=== PATIENT | male | born 1955 | race Caucasian/White ===

== ENCOUNTER 2018-03-04 08:02 | Observation (INO) | payer BC, SELFPAY ==
[2018-03-04] VITALS (17 sets, daily range): BP systolic 112–131; BP diastolic 64–86; PULSE 63–100; RESP 16–20; TEMP 36.4–36.7; O2SAT 92–100; BMI 32.6; BMI 31.2
--- NOTE | 2018-03-04 08:07 | EKG12_ITS ---
Test Reason : CP Blood Pressure : / mmHG Vent. Rate : 091 BPM Atrial Rate : 091 BPM P-R Int : 170 ms QRS Dur : 092 ms QT Int : 342 ms P-R-T Axes : 057 018 037 degrees QTc Int : 420 ms Sinus rhythm with occasional Premature ventricular complexes Otherwise normal ECG Confirmed by JELANI PATEL, ANN-MARIE ([id number]), offline editor LONNIE FRENCH ([id number]) on 03/07/2018 2:21:52 PM Referred By: TANI Confirmed By:ANN-MARIE PALOMARES MD
--- NOTE | 2018-03-04 08:07 | RAD_ITS ---
STUDY: X-RAY CHEST REASON FOR EXAM: Male, 62 years old. Chest pain TECHNIQUE: Single AP portable view of the chest. COMPARISON: March 03, 2017 FINDINGS: The lungs are clear and expanded. There is no demonstrated pleural abnormality. There is mild cardiac enlargement. There are prominent central vascular markings. Normal visualized pulmonary arteries. Normal visualized aortic arch and descending thoracic aorta. Normal visualized thoracic spine. Normal visualized ribs, clavicles, and shoulders. There is no demonstrated abnormality of the visualized soft tissue structures of the upper abdomen. RAD/Chest 1 View (Portable) IMPRESSION: Prominent central vascular markings slightly greater than the prior study consider mild vascular congestion. Electronically Signed: Kelly Manjarrez MD at 8:36 EST Tel , Service support ,
--- NOTE | 2018-03-04 08:09 | ED.VISSUMM ---
- ER Visit Summary Date of Service: 03/04/18 Chief Complaint: Chest pain History of Present Illness: The patient is a 62 M with history of hypertension, hyperlipidemia, diabetes, and smoking presents to the emergency department chest pain. Patient states he was working this morning. He states he began to have a substernal chest tightness shortness of breath that radiated to his right arm. He states that he did slightly decrease when he was resting. He states he has had pain like this before around the year 1999. He states that time he did have a heart attack. He states that he did have a cardiac catheterization, but does not have stents. He does take aspirin daily. He denies any fevers or chills. He has had a scant cough. He denies any leg swelling. He has no history of pulmonary embolus. Physical Examination: Vital signs reviewed General: Well-nourished, well-developed Head: Normocephalic, atraumatic Eyes: Pupils equal and reactive, extraocular muscles intact Neck, supple, no lymphadenopathy Heart: Regular rate and rhythm Respiratory: No distress, clear bilaterally Abdomen: Soft, nontender, nondistended, no peritoneal signs Back: Nontender Extremities: Nontender, no edema, no cords Skin: Normal color no rash Neuro: Alert and oriented, no focal or lateralizing deficits Test Results: [] Emergency Department Course and Treatment: EKG was obtained on patient arrival. There is no acute ischemic change. He does have a few PVCs, but it is unchanged from prior. The patient presents with chest pain. He does have history of coronary vascular disease. He did have angioplasty but no stenting. He was given 2 nitro with improvement of his pain. His chest x-ray shows questionable pulmonary edema, but no large pleural effusions. Patient's cardiac enzymes are normal. His pain was improved with nitro. Given his age, multiple cardiac risk factors, history of coronary vascular disease, I do feel the patient has been a require a cardiac workup. Patient was discussed with the hospitalist. Treatment Plan: [] Disposition: Admission Impression: 1. Chest pain with history of coronary vascular disease This note was generated with [employer] dictation software. It may contain incorrect words, spelling, and punctuation that were not noted in review of the chart prior to signing ED Disposition - Plan for ED Patient: Chief Complaint: Chest Pain Referrals: Iker Chowdary MD [Primary Care Provider] -
[2018-03-04 08:18] LABS: Absolute Lymphocyte Count 1.45 X10^3/ul (0.83-4.51); Absolute Neutrophil Count 7.1 X10^3/uL (2.0-7.7); Basophil# 0.03 X10^3/uL; Basophil% 0.3 % (0-1); Eosinophil# 0.19 X10^3/uL; Hematocrit 43.9 % (40-54); Hemoglobin 14.9 g/dl (13.0-16.5); Lymphocyte # 1.45 X10^3/ul (4.0); Lymphocyte % 15.1 % (19-41); Mean Corp Hgb Conc 33.9 g/gl (32-36); Mean Corpuscular Hgb 32.3 pg (27.0-32.0); Mean Corpuscular Volume 95.2 fL (80-94); Mean Platelet Vol. 9.5 fl (6.2-12.0); Monocyte# 0.88 X10^3/uL; Monocyte% 9.1 % (0-10); Neutrophil # 7.06 X10^3/uL (2.7-7.7); Neutrophil % 73.4 % (47-70); Platelet Count 220 K/mm3 (150-450); RBC Distribution Width CV 14.2 % (11.6-14.6); RBC Distribution Width SD 49.5 fl (35.1-43.9); Red Blood Count 4.61 M/mm3 (4.6-6.2); White Blood Count 9.6 K/mm3 (4.4-11.0)
[2018-03-04] MEDS: Ondansetron 4 MG/2 ML Vial IV (08:22)
[2018-03-04] MEDS: Aspirin 81 MG TAB.CHEW 324 MG PO (08:22)
[2018-03-04 08:35] LABS: POSITIVE COUNT NO; POSITIVE DIFFERENTIAL NO; POSITIVE MORPHOLOGY NO
[2018-03-04 08:41] LABS: Anion Gap 10 (5-15); BUN 19 mg/dL (7-18); BUN/Creat Ratio 19.4 RATIO (10-20); Calcium,Total 8.9 mg/dL (8.5-10.1); Chloride 108 mmol/L (98-107); Creatinine, Serum 0.98 mg/dL (0.70-1.30); EST Glomerular Filtration Rate 83 mL/min (>60); Est Glom Filt Rate - Afr Amer 100 mL/min (>60); Estimated Creatinine Clearance 81.73 ml/min; Glucose 125 mg/dL (74-106); Potassium 4.7 mmol/L (3.5-5.1); Sodium Level 142 mmol/L (136-145)
[2018-03-04 09:02] LABS: BNP,B-Type NATRIURETIC PEPTIDE 7.4 pg/mL (0-100)
--- NOTE | 2018-03-04 09:29 | HP.PCM_ITS ---
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 He was having substernal chest tightness and shortness of breath and the pain was radiating down his right arm. There was some relief with rest. He states that this pain is similar to the pain he had back in 1999 when he underwent a cardiac cath in his coronary arteries were found to be clean, and he did not need a stent placed. In the ER and initial troponin was negative and a chest x-ray showed possible vascular congestion but a BNP was normal. EKG is nonischemic. Pain was helped with nitroglycerin, and he denies any pain currently. He has not been having any episodes of chest pain prior to this. Past Medical History Past Medical History (Chronic Problems): Chronic Problems DM type 2 (diabetes mellitus, type 2) (Chronic) Peripheral vascular disease (Chronic) GERD (gastroesophageal reflux disease) (Chronic) Hyperlipidemia (Chronic) Allergies No Known Allergies Allergy (Verified 03/04/18 08:06) Home Medications: Ambulatory Orders Medication Instructions Recorded Aspirin [Aspirin, Baby] 81 mg PO DAILY@0800 12/09/15 Cilostazol [Pletal] 50 mg PO BIDAC 12/09/15 Clopidogrel Bisulfate [Plavix] 75 mg PO DAILY 12/09/15 Famotidine [Pepcid] 20 mg PO DAILY 12/09/15 Insulin Glargine [Lantus (BKC)] 6 units SC DAILY 12/09/15 Omeprazole [Prilosec] 10 mg PO QHS 12/09/15 Pravastatin [Pravachol] 80 mg PO DAILY 12/09/15 Risperidone [Risperdal] 1 mg PO DAILY 12/09/15 Vitb,C/Iron Fum/FA/Vit E/Aa 16 2 each PO DAILY 12/09/15 [Stress Formula Energy Tablet] Glipizide 5 mg PO TID 03/03/17 Albuterol Inhaler [Ventolin Hfa 2 puff INHALATION Q6H PRN PRN 03/04/18 (SP)] Budesonide Inhaler 180 mcg 1 puff INHALATION BID 03/04/18 [Pulmicort Inhaler 180 mcg] Dapagliflozin Propanediol [Farxiga] 10 mg PO DAILY 03/04/18 Metformin HCl [Glucophage Xr] 500 mg PO BID 03/04/18 Pioglitazone [Actos] 45 mg PO DAILY 03/04/18 Surgical History: - - Left leg clot removal, cardiac cath in 1999 Psychiatric History: - - Tourette's Lives: Spouse/ Significant Other Smoking Status: Current every day smoker Tobacco Use: Cigarettes Alcohol: None Drugs: None - *Family History Paternal History Items: Cancer - Prostate Review of Systems Constitutional: Denies: Chills, Fever, Weight Change HEENT: Denies: Head Aches, Sinus Congestion, Sinus Drainage Cardiovascular: Reports: Chest Pain. Denies: Light Headedness, Orthopnea, Palpitations, Syncope Respiratory: Reports: Shortness of Breath. Denies: Cough, Shortness of breath at rest, Sputum production Gastrointestinal: Denies: Abdominal Pain, Nausea, Vomiting Genitourinary: Denies: Dysuria Musculoskeletal: Denies: Joint Pain, Joint Tenderness Skin: Denies: Rash, Wounds Neurological: Denies: Numbness, Tingling, Focal weakness Psychiatric: Denies: Anxiety, Depression Hematologic/ Lymphatic: Denies: Easy Bruising, Easy Bleeding VTE Information - Inpt Only VTE Present on Admission: No Patient Problems: Active and Suspected Problems Chest pain (Acute) - Physical Exam General: Alert, Oriented x3, Cooperative, No apparent distress HEENT: Atraumatic, PERRLA, EOMI, Normocephalic Oral: Moist Mucosa Neck: Supple, No JVD Lungs: Clear to auscultation, Normal air movement, No rhonchi, No wheeze, No rales Cardiovascular: Regular rate, Regular Rhythm, Normal S1, Normal S2, No murmurs Abdomen: Soft, Non Tender, Non-Distended, No Hepato-splenomegaly Extremities: No edema, Capillary Refill Less than 3 Seconds Skin: No rashes, No breakdown Neurological: Neuro grossly intact, Sensory exam intact to light touch and pain Psych/Mental Status: Normal Affect, Appropriate Vital Signs Temp Pulse Resp BP Pulse Ox 97.9 F 75 20 H 112/86 H 92 03/04/18 08:06 03/04/18 09:04 03/04/18 09:04 03/04/18 09:04 03/04/18 09:04 Oxygen Delivery Method Room Air Weight: 227 lb 8.273 oz Body Mass Index (BMI) 32.6 Laboratory Tests Past 24 Hrs 03/04/18 03/04/18 03/04/18 08:10 08:10 08:10 WBC 9.6 RBC 4.61 Hgb 14.9 Hct 43.9 MCV 95.2 H MCH 32.3 H MCHC 33.9 RDW 14.2 RDW Differential 49.5 H Plt Count 220 MPV 9.5 Immature Gran % (Auto) 0.100 Neut % (Auto) 73.4 H Lymph % (Auto) 15.1 L [place] % (Auto) 9.1 Eos % (Auto) 2.0 Baso % (Auto) 0.3 Absolute Neuts (auto) 7.1 Absolute Lymphs (auto) 1.45 Total Counted Not Reportable Sodium 142 Potassium 4.7 Chloride 108 H Carbon Dioxide 24.0 Anion Gap 10 BUN 19 H Creatinine 0.98 Estim Creat Clear Calc 81.73 Est GFR (MDRD) Af Amer 100 Est GFR (MDRD) Non-Af 83 BUN/Creatinine Ratio 19.4 Glucose 125 H Calcium 8.9 Troponin I < 0.015 B-Natriuretic Peptide 7.4 Assessment/Plan All Active Problems Chest pain (Acute) 1. Chest pain rule out/peripheral vascular disease/hyperlipidemia -Initial troponin was negative will obtain serial enzymes -Plan for nuclear stress test in the morning -Continue with Plavix and Pletal -Cardiac diet -Continue with pravastatin 80 mg daily 2. COPD/tobacco abuse -No exacerbation at the moment -Continue with home inhalers -Smokes 1-1/2 packs/day, declines nicotine patch, counseled on cessation 3. DM 2 -Blood glucose on admission is 125 -At home he is on glipizide, Lantus 6 units daily, metformin, Actos -We will hold his home oral medications and continue his insulin, and add sliding scale insulin 4. Tourette's -Stable -Continue with risperidone 5. GERD -Stable -Continue with Pepcid DVT: Lovenox Code Visit OBSV E&M: 65913 Initial observation care L3
[2018-03-04] MEDS: Enoxaparin 40 MG/0.4 ML Syringe SC (11:07)
[2018-03-04 11:35] LABS: Bedside Glucose 108 mg/dL (70-110)
[2018-03-04] MEDS: Cilostazol 50 MG Tablet PO (16:16)
[2018-03-04 16:50] LABS: Bedside Glucose 126 mg/dL (70-110)
[2018-03-04] MEDS: Budesonide Respules 0.5 MG/2 ML AMPUL.NEB. INHALATION (18:46)
[2018-03-04] MEDS: Pantoprazole Sodium 20 MG Tablet PO (21:49)
[2018-03-04] MEDS: Insulin Lispro 100 UNIT/ML INSULN.PEN SQ (21:49)
[2018-03-04 21:56] LABS: Bedside Glucose 211 mg/dL (70-110)
[2018-03-05 02:54] VITALS: PULSE 66
[2018-03-05 03:38] VITALS: BP 110/72; PULSE 82; RESP 16; TEMP 36.6; O2SAT 97
[2018-03-05 05:24] LABS: Absolute Lymphocyte Count 1.39 X10^3/ul (0.83-4.51); Absolute Neutrophil Count 3.7 X10^3/uL (2.0-7.7); Basophil# 0.01 X10^3/uL; Basophil% 0.2 % (0-1); Eosinophil# 0.22 X10^3/uL; Eosinophils% 3.8 % (0-5); Hematocrit 47.6 % (40-54); Hemoglobin 15.7 g/dl (13.0-16.5); Lymphocyte # 1.39 X10^3/ul (4.0); Lymphocyte % 23.9 % (19-41); Mean Corpuscular Hgb 31.7 pg (27.0-32.0); Mean Corpuscular Volume 96.2 fL (80-94); Mean Platelet Vol. 8.8 fl (6.2-12.0); Monocyte# 0.54 X10^3/uL; Monocyte% 9.3 % (0-10); Neutrophil # 3.65 X10^3/uL (2.7-7.7); Neutrophil % 62.6 % (47-70); Platelet Count 195 K/mm3 (150-450); RBC Distribution Width SD 49.5 fl (35.1-43.9); Red Blood Count 4.95 M/mm3 (4.6-6.2); White Blood Count 5.8 K/mm3 (4.4-11.0)
[2018-03-05 05:32] LABS: Prothrombin Time (Protime)PT. 13.1 SECONDS (11.7-14.9)
[2018-03-05 05:33] LABS: Partial Thromboplast Time 26.8 Seconds (24.1-36.2)
[2018-03-05 05:35] LABS: POSITIVE COUNT NO; POSITIVE DIFFERENTIAL NO; POSITIVE MORPHOLOGY NO
[2018-03-05 05:43] LABS: Anion Gap 8 (5-15); BUN 14 mg/dL (7-18); Calcium,Total 8.7 mg/dL (8.5-10.1); Chloride 107 mmol/L (98-107); Creatinine, Serum 0.87 mg/dL (0.70-1.30); EST Glomerular Filtration Rate 94 mL/min (>60); Est Glom Filt Rate - Afr Amer 114 mL/min (>60); Estimated Creatinine Clearance 92.07 ml/min; Glucose 124 mg/dL (74-106); Potassium 4.2 mmol/L (3.5-5.1); Sodium Level 141 mmol/L (136-145)
[2018-03-05 05:49] VITALS: BP 112/73; PULSE 91; RESP 14; TEMP 36.6; O2SAT 95
[2018-03-05] MEDS: Aspirin 81 MG TAB.CHEW PO (05:52)
[2018-03-05] MEDS: Clopidogrel Bisulfate 75 MG Tablet PO (05:52)
--- NOTE | 2018-03-05 05:55 | EKG12_ITS ---
Test Reason : AM EKG Blood Pressure : / mmHG Vent. Rate : 083 BPM Atrial Rate : 083 BPM P-R Int : 162 ms QRS Dur : 086 ms QT Int : 364 ms P-R-T Axes : 073 056 046 degrees QTc Int : 427 ms Normal sinus rhythm Normal ECG Confirmed by JELANI PATEL, ANN-MARIE ([id number]), video effects editor LONNIE FRENCH ([id number]) on 03/07/2018 3:01:19 PM Referred By: MALINDA Confirmed By:ANN-MARIE PALOMARES MD
[2018-03-05 06:02] LABS: Bedside Glucose 156 mg/dL (70-110)
[2018-03-05 08:19] VITALS: PULSE 84; RESP 18; O2SAT 94
[2018-03-05] MEDS: Budesonide Respules 0.5 MG/2 ML AMPUL.NEB. INHALATION (08:19)
[2018-03-05 09:33] VITALS: BP 112/75; PULSE 78; RESP 18; TEMP 36.7; O2SAT 94
[2018-03-05] MEDS: Famotidine 20 MG Tablet PO (09:35)
[2018-03-05] MEDS: Cilostazol 50 MG Tablet PO (09:35)
[2018-03-05] MEDS: RisperiDONE 1 MG Tablet PO (09:35)
--- NOTE | 2018-03-05 09:46 | STRESSREP_ITS ---
Stress Test Report Date: 03/05/2018 Procedure: Exercise tolerance test/imaging study Indications: Chest pain Consent: Per the patient Procedure: The patient exercised on a Pb protocol for 4 minutes and 15 seconds completing Stage I and 1 minute 15 seconds of Stage II achieving a peak heart rate of 141 bpm (88 % predicted maximal heart rate) with a peak blood pressure 140/84 mmHg and a peak MET capacity of 6 METs. The baseline ECG demonstrated normal sinus rhythm. The peak exercise ECG demonstrated no obvious ECG changes. There were rare PVCs pretest, during exercise, and recovery. The functional capacity was considered decreased. There was no complaint of chest discomfort during exercise or recovery. The examination was discontinued secondary to dyspnea and leg discomfort. Impression: 1. Technically adequate (percent predicted maximal heart rate greater than 85%) exercise tolerance test 2. Peak exercise ECG VS ECG changes 3. There were rare PVCs pretest, during exercise, and recovery 4. Nuclear images pending Myocardial perfusion imaging study: Technique: The patient was injected with 14.3 mCi of technetium 99m Cardiolite and subsequently rest SPECT Cardiolite nuclear imaging was obtained in the horizontal long, vertical long, and short axis views. The patient exercised on a Pb protocol for 4 minutes and 15 seconds completing Stage I and 1 minute 15 seconds of Stage II achieving a peak heart rate of 141 bpm (88 % predicted maximal heart rate) with a peak blood pressure 140/84 mmHg and a peak MET capacity of 6 METs. The patient was injected with 44.4 mCi of technetium 99m Cardiolite and subsequently stress SPECT Cardiolite nuclear imaging was obtained in the horizontal long, vertical long, and short axis views. A gated Cardiolite study at peak stress was obtained. Interpretation: Rest and stress SPECT Cardiolite nuclear imaging status post realignment and normalization demonstrates the appearance at rest of extracardiac/gastrointestinal tracer uptake near the inferior segments as well as diminished absence of myocardial perfusion/tracer uptake in portions of the basal to distal inferior and inferior apical segments. Status post stress there appears to be a continued area of diminished myocardial perfusion/tracer uptake in portions of the basal to distal inferior and inferior apical segments, however, less prominent compared with rest.. There is end systolic thickening and brightening. The gated Cardiolite study demonstrates myocardial thickening and inward wall motion. The reported LVEF is 52%. Impression: 1. Rest and stress SPECT Cardiolite nuclear imaging demonstrate the appearance of diminished myocardial perfusion/tracer uptake in portions of the basal to distal inferior and inferoapical segments which appears to be more prominent at rest as opposed to stress potentially compatible with the effects of resting gastrointestinal tracer uptake/traction and shifting soft tissue herniation, however, an area of previous myocardial injury/infarction cannot necessarily be excluded. There are no myocardial perfusion changes considered diagnostic for associated stress-induced myocardial ischemia. 2. The gated Cardiolite study reports an LVEF of 52%. This note was generated with [employer]uetestation software. It may contain incorrect words, spelling, and punctuation that were not noted in checking the note before signing.
[2018-03-05 10:05] VITALS: PULSE 84
--- NOTE | 2018-03-05 11:03 | DCINST_ITS ---
- Discharge Diagnoses Current Active Problems: Current Active and Chronic Problems DM type 2 (diabetes mellitus, type 2) (Chronic) Peripheral vascular disease (Chronic) GERD (gastroesophageal reflux disease) (Chronic) Hyperlipidemia (Chronic) Chest pain (Acute) You will use the following diet at home:: Cardiac Your food should be the consistency of: Regular Your liquids should be the consistency of: Regular/Thin Discharge Activity: Return to Normal Activity Weight Bearing Status: Weight bearing as tolerated Call your doctor if you observe: Chest pain, Increased palpitations (irregular heartbeat) Instructions: What Is Angina?, Fast-Acting Nitroglycerin, Tips for Quitting Smoking (Cardiovascular) Allergies/Adverse Reactions: Allergies No Known Allergies Allergy (Verified 03/04/18 08:06) Medications to take at Discharge Aspirin [Aspirin, Baby] 81 mg PO DAILY@0800 12/09/15 Cilostazol [Pletal] 50 mg PO BIDAC 12/09/15 Clopidogrel Bisulfate [Plavix] 75 mg PO DAILY 12/09/15 Famotidine [Pepcid] 20 mg PO DAILY 12/09/15 Insulin Glargine [Lantus SoloStar Pen] 6 units SC DAILY 12/09/15 Omeprazole [Prilosec] 10 mg PO QHS 12/09/15 Pravastatin [Pravachol] 80 mg PO DAILY 12/09/15 Risperidone [Risperdal] 1 mg PO DAILY 12/09/15 Vitb,C/Iron Fum/FA/Vit E/Aa 16 [Stress Formula Energy Tablet] 2 each PO DAILY 12/09/15 Glipizide 5 mg PO TID 03/03/17 Albuterol Inhaler [Ventolin Hfa] 2 puff INHALATION Q6H PRN PRN 03/04/18 Budesonide Inhaler 180 mcg [Pulmicort Inhaler 180 mcg] 1 puff INHALATION BID 03/04/18 Dapagliflozin Propanediol [Farxiga] 10 mg PO DAILY 03/04/18 Metformin HCl [Glucophage Xr] 500 mg PO BID 03/04/18 Pioglitazone [Actos] 45 mg PO DAILY 03/04/18 Nitroglycerin 0.4 mg SL PRN PRN #30 tab.subl 03/05/18 The following prescriptions were given: Nitroglycerin 0.4 mg SL PRN PRN #30 tab.subl PRN Reason: Cardiac/Chest Pain Primary Care Physician: Iker Chowdary MD [Primary Care Provider] - Please follow up with your Primary Care Physician in: one week Test Results: Test results from this visit will be discussed in further detail at your follow- up appointment, if applicable. Proposed Discharge Date: 03/05/18
--- NOTE | 2018-03-05 11:03 | PCM.DC.SUM ---
Discharge Date and Diagnosis Date of Admission: 03/04/18 Date of Discharge: 03/05/18 - Primary Discharge Diagnosis Active and Suspected Problems Chest pain (Acute) - Secondary Discharge Diagnosis Chronic Problems DM type 2 (diabetes mellitus, type 2) (Chronic) Peripheral vascular disease (Chronic) GERD (gastroesophageal reflux disease) (Chronic) Hyperlipidemia (Chronic) Hospital Course and Treatment Imaging Results: 03/05/18 05:55 Nuclear Stress Test - Treadmil [NM] Routine Operations: None Procedures: Stress test Summary of Care Provided: The patient is a 62 year old M [with past medical history of diabetes mellitus, GERD, hyperlipidemia and peripheral vascular disease. He was admitted on 03/04/2018 with a complaint of chest pain with associated substernal chest tightness and shortness of breath. Pain radiated down his right arm and was relieved by rest. Troponins were negative and EKG showed no acute ST changes. Chest x-ray showed possible vascular congestion but BNP was within normal limits. Patient will put on sublingual nitroglycerin and aspirin. He had a stress test on 03/05/2018 which was negative and showed EF of 52%. He remained stable and was discharged home on 03/04/2018. He is to follow-up with his primary care doctor. Patient was seen and examined prior to discharge. He felt well and had no complaints. He denies any fever chills chest pain, abdominal pain, shortness of breath, diarrhea or vomiting. Review of systems otherwise negative. Labs and vitals reviewed. Home medications reviewed and reconciled. o/e: Vital Signs Height 5 ft 10 in Weight: 217 lb 9.54 oz Weight in Pounds 217.6 lbs Pulse Ox 94 Temperature 98.1 F Pulse Rate 84 Respiratory Rate 18 Blood Pressure 112/75 Blood Pressure Position Sitting General: Alert, Oriented x3, Cooperative, No apparent distress HEENT: Atraumatic, PERRLA, EOMI, Normocephalic Oral: Moist Mucosa Neck: Supple, No JVD Lungs: Clear to auscultation, Normal air movement, No rhonchi, No wheeze, No rales Cardiovascular: Regular rate, Regular Rhythm, Normal S1, Normal S2, No murmurs Abdomen: Soft, Non Tender, Non-Distended, No Hepato-splenomegaly Extremities: No edema, Capillary Refill Less than 3 Seconds Skin: No rashes, No breakdown Neurological: Neuro grossly intact, Sensory exam intact to light touch and pain Psych/Mental Status: Normal Affect, Appropriate Plan as stated above. He is to follow up with his PCP in one week. Patient also counseled to quit smoking. - Physical Exam Vital Signs Temp Pulse Resp BP Pulse Ox 98.1 F 78 18 112/75 94 03/05/18 09:33 03/05/18 09:33 03/05/18 09:33 03/05/18 09:33 03/05/18 09:33 Oxygen Delivery Method Room Air Weight: 217 lb 9.54 oz Body Mass Index (BMI) 31.2 Intake and Output for Last 24 Hours 03/03/18 03/04/18 03/05/18 23:59 23:59 23:59 Intake Total 1210 / 1210 Balance 1210 / 1210 Laboratory Tests Past 24 Hrs 03/04/18 03/04/18 03/05/18 11:00 14:05 05:10 WBC 5.8 RBC 4.95 Hgb 15.7 Hct 47.6 MCV 96.2 H MCH 31.7 MCHC 33.0 RDW 14.0 RDW Differential 49.5 H Plt Count 195 MPV 8.8 Immature Gran % (Auto) 0.200 Neut % (Auto) 62.6 Lymph % (Auto) 23.9 [place] % (Auto) 9.3 Eos % (Auto) 3.8 Baso % (Auto) 0.2 Absolute Neuts (auto) 3.7 Absolute Lymphs (auto) 1.39 Total Counted Not Reportable PT INR APTT Sodium Potassium Chloride Carbon Dioxide Anion Gap BUN Creatinine Estim Creat Clear Calc Est GFR (MDRD) Af Amer Est GFR (MDRD) Non-Af BUN/Creatinine Ratio Glucose Calcium Troponin I 0.020 < 0.015 03/05/18 03/05/18 05:10 05:10 WBC RBC Hgb Hct MCV MCH MCHC RDW RDW Differential Plt Count MPV Immature Gran % (Auto) Neut % (Auto) Lymph % (Auto) [place] % (Auto) Eos % (Auto) Baso % (Auto) Absolute Neuts (auto) Absolute Lymphs (auto) Total Counted PT 13.1 INR 1.0 APTT 26.8 Sodium 141 Potassium 4.2 Chloride 107 Carbon Dioxide 26.0 Anion Gap 8 BUN 14 Creatinine 0.87 Estim Creat Clear Calc 92.07 Est GFR (MDRD) Af Amer 114 Est GFR (MDRD) Non-Af 94 BUN/Creatinine Ratio 16.0 Glucose 124 H Calcium 8.7 Troponin I POC Glucose 03/05/18 03/04/18 03/04/18 05:54 21:46 16:10 POC Glucose 156 H 211 H 126 H 03/04/18 11:11 POC Glucose 108 Discharge Diet: Low fat/ Low Cholesterol Discharge Activity: Return to Normal Activity Weight Bearing Status: Weight bearing as tolerated Call your doctor if you observe: Chest pain, Increased palpitations (irregular heartbeat) Home Medications: Medications to take at Discharge Aspirin [Aspirin, Baby] 81 mg PO DAILY@0800 12/09/15 Cilostazol [Pletal] 50 mg PO BIDAC 12/09/15 Clopidogrel Bisulfate [Plavix] 75 mg PO DAILY 12/09/15 Famotidine [Pepcid] 20 mg PO DAILY 12/09/15 Insulin Glargine [Lantus SoloStar Pen] 6 units SC DAILY 12/09/15 Omeprazole [Prilosec] 10 mg PO QHS 12/09/15 Pravastatin [Pravachol] 80 mg PO DAILY 12/09/15 Risperidone [Risperdal] 1 mg PO DAILY 12/09/15 Vitb,C/Iron Fum/FA/Vit E/Aa 16 [Stress Formula Energy Tablet] 2 each PO DAILY 12/09/15 Glipizide 5 mg PO TID 03/03/17 Albuterol Inhaler [Ventolin Hfa] 2 puff INHALATION Q6H PRN PRN 03/04/18 Budesonide Inhaler 180 mcg [Pulmicort Inhaler 180 mcg] 1 puff INHALATION BID 03/04/18 Dapagliflozin Propanediol [Farxiga] 10 mg PO DAILY 03/04/18 Metformin HCl [Glucophage Xr] 500 mg PO BID 03/04/18 Pioglitazone [Actos] 45 mg PO DAILY 03/04/18 Nitroglycerin 0.4 mg SL PRN PRN #30 tab.subl 03/05/18 Following Prescrptions Were Given to Patient: Nitroglycerin 0.4 mg SL PRN PRN #30 tab.subl PRN Reason: Cardiac/Chest Pain Primary Care Physician: Iker Chowdary MD [Primary Care Provider] - Please follow up with your Primary Care Physician in: one week Patient Instructions: What Is Angina?, Fast-Acting Nitroglycerin, Tips for Quitting Smoking (Cardiovascular) Disposition: Home Minutes spent on discharge:: 35 Patient Condition:: Stable Medical Necessity - Tobacco Use Smoking Status: Current every day smoker Tobacco Use: Cigarettes Meaningful Use Info Meaningful Use Diagnoses (Choose all that apply): None applicable Code Visit Inpatient E&M: 45957 Disch Hosp
== END 2018-03-05 11:02 | disposition home or self-care (01) ==
LOC: ED 08:35 → PCU 09:34
PROVIDERS: Admitting Provider Family Medicine; Emergency Provider Emergency Medicine; Family Provider Family Medicine; PCP Family Medicine; Visit Provider Student in an Organized Health Care Education/Training Program
DX: R07.89 Other chest pain (principal); I10 Essential (primary) hypertension; E78.5 Hyperlipidemia, unspecified; R06.02 Shortness of breath; I25.2 Old myocardial infarction; I49.3 Ventricular premature depolarization; K21.9 Gastro-esophageal reflux disease without esophagitis; E11.51 Type 2 diabetes mellitus with diabetic peripheral angiopathy without gangrene; Z79.899 Other long term (current) drug therapy; Z79.84 Long term (current) use of oral hypoglycemic drugs; Z79.82 Long term (current) use of aspirin; Z79.02 Long term (current) use of antithrombotics/antiplatelets; F17.210 Nicotine dependence, cigarettes, uncomplicated; J44.9 Chronic obstructive pulmonary disease, unspecified; F95.2 Tourette's disorder
CPT/HCPCS: 36415; 71045; 78452; 80048; 82962; 83880; 84484; 85025; 85610; 85730; 93005; 93017; 94640; 96372; 96374; 99218; 99283; 99406; A9500; A4216; G0378; J2405; J2785